=== PATIENT | female | born 1990 | race Caucasian/White ===

== ENCOUNTER 2021-05-17 12:25 | Inpatient (IN) ==
[2021-05-17] MEDS ORDERED: OXYTOCIN 30 UNITS/500 ML BAG IV PRN ×2 (12:39)
[2021-05-17 13:16] LABS: Hematocrit (blood only) 36.8 % (37-47); Hemoglobin 12.2 g/dL (12.0-16.0); Mean Corpuscular Hemoglobin 29.8 pg (25-34); Mean Corpuscular Hgb Conc 33.2 g/dL (32-36); Mean Platelet Volume 9.6 fL (7.4-10.4); Platelet Count 288 K/uL (130-400); RDW Coefficient of Variation 13.9 % (11.5-14.5); RDW Standard Deviation 45.8 fL (36.4-46.3); Red Blood Count 4.09 M/uL (4.2-5.4)
[2021-05-17] MEDS: LACTATED RINGER'S 1,000 ML IV PRN ×2 (13:49→15:25)
[2021-05-17] MEDS ORDERED: ePHEDrine sulfate 50 MG/ML AMP ONE (15:06)
[2021-05-17] MEDS ORDERED: BUPIVACAINE 0.25% 30 ML VIAL ONE (15:06)
[2021-05-17] MEDS ORDERED: SODIUM CHLORIDE 0.9% INJ 10 ML VIAL ONE (15:06)
[2021-05-17] MEDS ORDERED: fentaNYL 2MCG/ML ROPIVACAINE 1.25MG/ML 100 ML BAG EPI ONE (15:07)
[2021-05-17] MEDS ORDERED: fentaNYL citrate 100 MCG/2 ML VIAL ONE (15:07)
[2021-05-17] MEDS ORDERED: ePHEDrine sulfate 50 MG/ML AMP IV PRN (15:09)
[2021-05-17] MEDS ORDERED: NALBUPHINE HCL INJ 10 MG/ML AMP IV PRN (15:09)
[2021-05-17] MEDS ORDERED: NALOXONE HCL 1 MG in SODIUM CHLORIDE 0.9% 1000ML 1,000 ML IV PRN (15:09)
[2021-05-17] MEDS ORDERED: diphenhydrAMINE 50 MG/ML VIAL IV PRN (15:09)
[2021-05-17] MEDS ORDERED: ONDANSETRON INJ 2 MG/ML 2 ML VIAL IV PRN (15:09)
[2021-05-17] MEDS ORDERED: fentaNYL 2MCG/ML ROPIVACAINE 1.25MG/ML 100 ML BAG EPI PRN (15:09)
[2021-05-17] MEDS ORDERED: NALOXONE HCL 0.4 MG/1 ML VIAL/CARP IV PRN (15:09)
--- NOTE | 2021-05-17 15:09 | Anesthesiology Consultation ---
Date of Service May 17, 2021 Assessment & Plan ASA ASA3 Proposed Anesthesia Anesthesia Type: Labor Epidural Risk / Benefits Reviewed With: PT / POA / Parent / Guardian, Accepts Plan and Informed Consent Obtained History Height/Weight Height: 5 ft 2 in Weight: 123.377 kg Allergies Allergy/AdvReac Type Severity Reaction Status Date / Time No Known Allergies Allergy Verified 05/16/21 10:08 Medications Home Medications Medication Instructions Recorded Confirmed Last Taken DKL02-SH 400 mcg-om3 35 mg-dha 25 tab PO DAILY 10/29/20 05/16/21 05/16/21 08:00 mg-epa 5 mg-fish oil chewable tablet ferrous sulfate 1 tab PO DAILY 10/29/20 05/17/21 05/16/21 08:00 acetone (urine) test (Ketone Urine #50 ea 03/22/21 05/16/21 Unknown Test) blood sugar diagnostic (OneTouch #150 ea 03/22/21 05/16/21 Unknown Verio test strips) blood-glucose meter (OneTouch #1 ea 03/22/21 05/16/21 Unknown Verio Reflect Meter) lancets 33 gauge (OneTouch Delica #150 ea 03/22/21 05/16/21 Unknown Plus Lancet) Active Medications Generic Name Dose Route Start Last Admin Trade Name Freq PRN Reason Stop Dose Admin Oxytocin 30 units in 500 mls @ 4 mls/hr 05/17/21 12:39 05/17/21 15:00 Pitocin IV 05/19/21 12:38 0.24 units/hr .Q24H PRN 4 mls/hr Labor Induction/Augmentation Titration Protocol 0.24 UNITS/HR Lactated Ringer's 1,000 mls @ 125 mls/hr 05/17/21 12:39 05/17/21 15:25 Lr IV 05/19/21 12:38 125 mls/hr .Q8H PRN Administration L&D Protocol Protocol Past Medical History Medical History (Updated 05/17/21 @ 12:54 by Grace Davidson RN) Gestational diabetes Diet controlled. History of chicken pox Low lying placenta without hemorrhage, antepartum Exercise / Class Metabolic Activity II 4-5 Yardwork/Stairs/Walk up hill Past Family History Family History Grandmother (Maternal) Breast cancer great grandmother Grandmother (Maternal) Skin cancer Grandfather (Maternal) Skin cancer Mother Hypertension Denies family history of Ovarian cancer Colorectal cancer Past Surgical History Surgical History S/P wisdom tooth extraction Past Anesthesia History No Hx of Anesthesia Complications and No Family Hx of Anesthesia Complications History of PONV No Hx of PONV and No Hx of Motion Sickness Social History Smoking Status: Former smoker Hx Alcohol Use: No Hx Substance Use: No Review of Systems denies fever/cough/ colds/ chest pain/ SOB/ CLARA denies CLARA Physical Exam Vital Signs Last Vital Signs Temp 36.8 C 05/17/21 13:00 Pulse 76 05/17/21 15:46 Resp 16 05/17/21 13:00 BP 103/59 L 05/17/21 15:42 Pulse Ox 95 05/17/21 15:46 ENMT Mouth: no TMJ abnormality and no dentition abnormality Thyromental Distance: > or= 3.5 Finger Breadths Mallampati Class: II Neck neck extension not limited Respiratory normal respiratory effort; no respiratory distress Auscultation: lungs clear to auscultation bilaterally Cardiovascular Rate/Rhythm: regular rate and regular rhythm Neurologic moves all extremities Psychiatric Orientation: alert and oriented x 3 Testing Laboratory Results 05/17/21 12:59 05/17/21 13:56 POC Glucose 78
[2021-05-17] MEDS ORDERED: BUPIVACAINE 0.5 % 5 MG/1 ML PF 10ML VIAL ONE (21:44)
--- NOTE | 2021-05-17 21:54 | Communication Note ---
Date of Service: May 17, 2021 pt has a hot spot on lower right side. i pulled catheter back to 11cm, i bolused with 7 mL of .25% bupivicaine. pt reports improvement in symptoms.
--- NOTE | 2021-05-18 01:02 | Delivery Summary ---
Vaginal Delivery Summary Date of Service May 18, 2021 Vaginal Delivery Summary Patient induced postdates this was her third baby group B strep negative Covid negative induction was begun externally with a cervical Nesbitt and Pitocin artificial rupture of membranes was done for clear fluid after epidural she eventually developed meconium but a category was category 2 or worse per heart rate tracing she pushed over an intact perineum a baby in occiput anterior position initially I did trouble assessing the anterior shoulder but with gentle traction I was able to gently allow the shoulder to send anteriorly there is no nuchal cord baby was born female live vigorous cord clamped and cut cord gases obtained cord blood obtained placenta removed with gentle traction IV Pitocin started there was no tearing estimated blood loss 250 mL sponge and instrument counts correct
[2021-05-18] MEDS ORDERED: OXYTOCIN 30 UNITS/500 ML BAG IV PRN (01:16)
[2021-05-18] MEDS ORDERED: BENZOCAINE 20% AER SPR 82.5 GM CAN EXT PRN (01:16)
[2021-05-18] MEDS ORDERED: HYDROCORTISONE ACETATE 25 MG SUPP PR PRN (01:16)
[2021-05-18] MEDS ORDERED: ACETAMINOPHEN 325 MG TAB PO PRN (01:16)
[2021-05-18] MEDS ORDERED: oxyCODONE/ACETAMINOPHEN 5mg/325mg TAB PO PRN (01:16)
[2021-05-18] MEDS ORDERED: bisacodyL 10 MG SUPP PR PRN (01:16)
[2021-05-18] MEDS ORDERED: DIPHTHERIA/TETANUS/PERTUSSIS 0.5 ML SYR/VIAL IM ONE (01:16)
[2021-05-18 01:43] LABS: Base Excess Cord Venous Blood -3.1 mEq/L (-7.7-1.9); Cord Venous Blood HCO3 24 mmol/L (18.4-26.8); Cord Venous Blood PCO2 48 mmHg (30.4-57.2); Cord Venous Blood PO2 22 mmHg (14.1-43.3); Cord Venous Blood pH 7.31 (7.20-7.44)
[2021-05-18 01:44] LABS: O2 Saturation Cord Venous Bld < 60.0 % (<68)
[2021-05-18] MEDS: IBUPROFEN 600 MG TAB PO PRN ×4 (02:46→20:10)
--- NOTE | 2021-05-18 07:37 | Anesthesia Procedure Note ---
Date of Service May 18, 2021 Anesthesia Post Epidural Note Vital Signs Vital Signs: Temp Pulse Resp BP Pulse Ox 37.2 C 100 H 18 148/68 H 94 05/18/21 04:51 05/18/21 04:39 05/18/21 04:51 05/18/21 04:51 05/18/21 01:33 Pain Intensity Back: Pain Intensity: 2 Notes Mental Status: alert / awake / arousable and participated in evaluation Nausea / Vomiting: adequately controlled Pain: adequately controlled Airway Patency, RR, SpO2: stable & adequate BP & HR: stable & adequate Hydration State: stable & adequate Neuraxial Anesthesia: was administered and sensory block is resolving Anesthetic Complications: no major complications apparent and Pt Satisfied with anesthetic care Epidural: Removed without complications and With tip intact
[2021-05-18] MEDS: DOCUSATE SODIUM 100 MG CAP PO SCH ×2 (08:17→20:52)
[2021-05-18] MEDS: PRENATAL VITAMIN 1 TAB PO SCH (08:17)
[2021-05-19] MEDS: IBUPROFEN 600 MG TAB PO PRN ×2 (00:06→07:02)
--- NOTE | 2021-05-19 06:01 | Obstetrical Progress Note ---
Date of Service <Yary Villa DO - Last Filed: 05/19/21 06:27> May 19, 2021 Assessment & Plan <Yary Villa DO - Last Filed: 05/19/21 06:27> (1) Encounter for care and examination after delivery: (2) Gestational diabetes mellitus (GDM) affecting , antepartum: (3) Obesity in , antepartum: 30 yo post op day1 from with GDN and obesity, doing well. -Continue routine post care. -vital signs reviewed and WNL (Tmax 36.7) -Blood Type O+, GBS-, Rubella immune -Encourage ambulation, monitor and control pain with Motrin, tylenol PRN, resume regular diet, monitor lochia -encourage breast feeding -hemoglobin 12.2 Day #:: 1 <Emily Madden MD - Last Filed: 05/19/21 07:40> (1) Encounter for care and examination after delivery: (2) Gestational diabetes mellitus (GDM) affecting , antepartum: (3) Obesity in , antepartum: Subjective <Yary Villa DO - Last Filed: 05/19/21 06:27> Ambulation: ambulating normally Voiding: no voiding problems Passing Gas:: Yes Diet Tolerance:: regular diet Lochia:: Small Current Pain Level(1-10): 3 Review of Systems Denies fever, chills, sweats Denies shortness of breath, difficulty breathing, chest pain, palpitations, chest pressure. Denies breast pain. Denies dysuria. Denies headache or changes in vision. Physical Exam <Yary Villa DO - Last Filed: 05/19/21 06:27> General: Alert, oriented. No acute distress. Cardiac: Regular rate and rhythm, no murmurs/rubs/gallops. Respiratory: Clear to auscultation bilaterally a/p, no wheezes/rales/rhonchi. No increased work of breathing. Symmetrical chest rise. No respiratory distress. Abdomen: Soft, nontender, nondistended. Bowel sounds present. Uterus: Uterine fundus firm, palpable 2 cm below umbilicus. Lower Extremities: No lower extremity edema or swelling. No deep calf pain. Lucio's negative bilaterally.. Results & Data ([facility]) <Yary Villa DO - Last Filed: 05/19/21 06:27> Vital Signs (Past 12 Hours) Vital Signs Temp Pulse Resp BP Pulse Ox 05/18/21 23:05 36.7 C 96 H 18 134/74 96 05/18/21 19:20 36.7 C 96 H 18 134/74 96 <Emily Madden MD - Last Filed: 05/19/21 07:40> Co-Signing Physician Notes Resident Physician Supervision Note: I interviewed and examined the patient. Discussed with Dr. Villa and agree with findings and plan as documented in the note. Any exceptions or clarifications are listed here: PP1 s/p , doing well. VSS, exam benign and wnl. Desires d/c home, ok to do so Documented By: Emily Madden MD Resident Activity Tracking <Yary Villa DO - Last Filed: 05/19/21 06:27> Resident Involvement: Resident Care Provided Care Provided: Adult Hospital Medicine
[2021-05-19 06:21] LABS: Hematocrit (blood only) 31.8 % (37-47); Hemoglobin 10.5 g/dL (12.0-16.0); Mean Corpuscular Hemoglobin 30.1 pg (25-34); Mean Corpuscular Volume 91.1 fL (80-100); Mean Platelet Volume 9.6 fL (7.4-10.4); Platelet Count 282 K/uL (130-400); RDW Coefficient of Variation 14.5 % (11.5-14.5); RDW Standard Deviation 47.9 fL (36.4-46.3); Red Blood Count 3.49 M/uL (4.2-5.4); White Blood Count 14.42 K/uL (4.8-10.8)
[2021-05-19] MEDS: PRENATAL VITAMIN 1 TAB PO SCH (08:24)
[2021-05-19] MEDS: DOCUSATE SODIUM 100 MG CAP PO SCH (08:24)
[2021-05-19] MEDS ORDERED: bisacodyL 5 MG TABEC PO SCH (20:00)
== END 2021-05-19 11:27 | disposition home or self-care (01) | DRG 807 ==
LOC: 4S1 12:25 → 4S2 05-18 05:06
DX: O99.214 Obesity complicating childbirth; O76 Abnormality in fetal heart rate and rhythm complicating labor and delivery; Z87.891 Personal history of nicotine dependence; O77.0 Labor and delivery complicated by meconium in amniotic fluid; Z3A.40 40 weeks gestation of pregnancy; O24.420 Gestational diabetes mellitus in childbirth, diet controlled; Z37.0 Single live birth; O48.0 Post-term pregnancy